=== PATIENT | female | born 1995 | race Caucasian/White ===

== ENCOUNTER 2017-05-08 21:52 | Emergency (ER) | payer OTHER ==
[2017-05-08 22:06] VITALS: BP 130/75; PULSE 82; TEMP 98; BMI 34.9
[2017-05-08] MEDS ORDERED: IBUPROFEN 600 MG TABLET (FP) PO ONE ×2 (22:16→22:27)
--- NOTE | 2017-05-08 22:36 | PDOC ---
History of Present Illness - General Chief Complaint: Pain Stated Complaint: LEG PAIN Time Seen by Provider: 05/08/17 22:07 History Source: Patient Exam Limitations: No Limitations - History of Present Illness Initial Comments: 05/08/17 22:31 21-year-old female presents to the ED with complaints of bilateral watts and right calf pain. Patient states currently is in a softball tournament and states every time she runs the symptoms return. Patient states took Aleve with moderate improvement but states pain returned today after playing in the game. Patient denies weakness, difficulty ambulating but states has an aching sharp pain with ambulation. Timing/Duration: intermittent Severity: mild Associated Symptoms: reports: denies symptoms Past History - Past Medical History Allergies/Adverse Reactions: Allergies Allergy/AdvReac Type Severity Reaction Status Date / Time No Known Allergies Allergy Verified 05/08/17 22:03 Home Medications: Ambulatory Orders NK [No Known Home Medication] 05/08/17 Suicide Attempt (Hx): No Other medical history: Pt denies - Immunization History Immunization Up to Date: Yes - Psycho/Social/Smoking Cessation Hx Anxiety: No Suicidal Ideation: No Smoking Status: No Smoking History: Never smoked Number of Cigarettes Smoked Daily: 0 Information on smoking cessation initiated: No Hx Alcohol Use: No Drug/Substance Use Hx: No Substance Use Type: None Patient Lives Alone: No Lives with/in: parents Review of Systems - Review of Systems Able to Perform ROS?: Yes Constitutional: No: Symptoms Reported Musculoskeletal: Yes: Muscle Pain Integumentary: No: Symptoms Reported Neurological: No: Symptoms reported *Physical Exam - Vital Signs Last Vital Signs Temp Pulse Resp BP Pulse Ox 98.0 F 82 20 130/75 99 05/08/17 22:04 05/08/17 22:04 05/08/17 22:04 05/08/17 22:04 05/08/17 22:04 - Physical Exam General Appearance: Yes: Nourished, Appropriately Dressed. No: Apparent Distress Extremity: positive: Normal Capillary Refill, Calf Tenderness (right), Other ( bilateral watts tenderness). negative: Pedal Edema Integumentary: positive: Normal Color, Warm, Moist Neurologic: positive: Motor Strength 5/5 (ambulatory) Medical Decision Making - Medical Decision Making 05/08/17 22:34 With complaints of bilateral watts pain and right calf pain. Patient currently in a softball tournament which seems to be aggravating her symptoms. Patient with leg condition splint and calf muscle strain. Patient ordered for Motrin here with supportive instructions for home. *DC/Admit/Observation/Transfer Diagnosis at time of Disposition: Watts splints Qualifiers: Encounter type: initial encounter Laterality: unspecified laterality Qualified Code(s): S86.899A - Other injury of other muscle(s) and tendon(s) at lower leg level, unspecified leg, initial encounter - Discharge Dispostion Disposition: HOME Condition at time of disposition: Good - Referrals Referrals: Jose López MD [Primary Care Provider] - - Patient Instructions Printed Discharge Instructions: DI for Watts Splint-Adult Additional Instructions: Please take Motrin 400 mg every 8 hours and apply ice to the affected areas and heat to your right calf. Please add potassium to diet and consider postrecovery drink following heavy exercise. - Post Discharge Activity
== END 2017-05-08 22:38 | disposition home or self-care (01) ==
LOC: JERFT 21:52
DX: S86.899A Other injury of other muscle(s) and tendon(s) at lower leg level, unspecified leg, initial encounter (principal); X58.XXXA Exposure to other specified factors, initial encounter; Y93.89 Activity, other specified; Y92.9 Unspecified place or not applicable
CPT/HCPCS: 99281-25

== ENCOUNTER 2017-07-13 18:45 | Emergency (ER) | payer OTHER ==
[2017-07-13 18:57] VITALS: BP 130/82; PULSE 118; TEMP 100.6; BMI 34.9
[2017-07-13] MEDS ORDERED: ACETAMINOPHEN 325 MG TABLET (FP) PO ONE (18:59)
--- NOTE | 2017-07-13 19:43 | PDOC ---
History of Present Illness - General Chief Complaint: Cold Symptoms Stated Complaint: FEVER Time Seen by Provider: 07/13/17 19:25 - History of Present Illness Initial Comments: 07/13/17 19:43 CHIEF COMPLAINT: fever, tired HISTORY OF PRESENT ILLNESS: 21 yo F with no PMH presents to [facility] with generalized malaise and fever since this morning. Patient reports "I didn't feel well this morning when I woke up so I basically slept all day. I have a headache and body aches." Patient denies any sore throat, cough, runny nose, sneezing, nausea, vomiting, diarrhea. PAST MEDICAL HISTORY: Denies past medical history FAMILY HISTORY: Denies SOCIAL HISTORY: Denies tobacco, alcohol, illicit drug use. SURGICAL HISTORY: Denies ALLERGIES: No known drug allergies REVIEW OF SYSTEMS General/Constitutional: Fever, weakness today. HEENT: Denies change in vision. Denies ear pain or discharge. Denies sore throat. Cardiovascular: Denies chest pain or shortness of breath. Respiratory: Denies cough, wheezing, or hemoptysis. Gastrointestinal: Denies nausea, vomiting, diarrhea. Genitourinary: Denies dysuria, frequency, or change in urination. Musculoskeletal: Body aches. Skin: Denies rash. Neurologic: Headache. Denies vertigo, loss of consciousness, or loss of sensation. PHYSICAL EXAM General Appearance: Well-appearing, appropriately dressed. No apparent distress. HEENT: Swollen turbinates. No erythema, swelling, or exudate to tonsils b/l. EOMI, PERRLA. No conjunctival pallor. No photophobia, scleral icterus. Neck: Supple. Trachea midline. No tenderness, rigidity, carotid bruit, stridor , lymphadenopathy, or thyromegaly. Respiratory/Chest: Lungs CTAB. No shortness of breath, chest tenderness, respiratory distress, accessory muscle use. No crackles, rales, rhonchi, stridor , wheezing, dullness Cardiovascular: RRR. S1, S2. Gastrointestinal/Abdominal: Normal bowel sounds. Abdomen soft, non-distended. No tenderness or rebound tenderness. No organomegaly, pulsatile mass, guarding , hernia, hepatomegaly, splenomegaly. Musculoskeletal/Extremities: Normal inspection. FROM of all extremities, normal capillary refill. No tenderness to extremities, pedal edema, swelling, erythema or deformity. Integumentary: Appropriate color, dry, warm. No cyanosis, erythema, jaundice or rash Neurologic: registered nurse practitioner II-XII intact. Fully oriented, alert. Appropriate mood/affect. Motor strength 5/5. No appreciable EOM palsy, facial droop or sensory deficit. 07/13/17 19:44 07/13/17 19:48 Past History - Past Medical History Allergies/Adverse Reactions: Allergies Allergy/AdvReac Type Severity Reaction Status Date / Time No Known Allergies Allergy Verified 07/13/17 18:57 Home Medications: Ambulatory Orders Ibuprofen 600 mg PO TID PRN #30 tablet 07/13/17 Loratadine [Claritin] 10 mg PO DAILY #14 tablet 07/13/17 Pseudoephedrine HCl [Sudafed 12-Hour] 120 mg PO BID PRN #14 tablet.er 07/13/17 Other medical history: denies - Immunization History Immunization Up to Date: Yes - Suicide/Smoking/Psychosocial Hx Smoking Status: No Smoking History: Never smoked Number of Cigarettes Smoked Daily: 0 Information on smoking cessation initiated: No Hx Alcohol Use: No Drug/Substance Use Hx: No Substance Use Type: None *Physical Exam - Vital Signs Last Vital Signs Temp Pulse Resp BP Pulse Ox 100.6 F H 118 H 18 130/82 98 07/13/17 18:53 07/13/17 18:53 07/13/17 18:53 07/13/17 18:53 07/13/17 18:53 ED Treatment Course - Medications Given in the ED: ED Medications Discontinued Medications Generic Name Dose Route Start Last Admin Trade Name Freq PRN Reason Stop Dose Admin Acetaminophen 650 mg 07/13/17 18:59 07/13/17 18:59 Tylenol - PO 07/13/17 19:00 650 mg NOW ONE Administration Medical Decision Making - Medical Decision Making 07/13/17 19:48 21 yo F with no PMH presents to [facility] with generalized malaise and fever. -UA, UCx. urine preg -influenza rapid swab *DC/Admit/Observation/Transfer Diagnosis at time of Disposition: Viral syndrome - Discharge Dispostion Disposition: HOME Condition at time of disposition: Stable Admit: No - Prescriptions Prescriptions: Loratadine [Claritin] 10 mg PO DAILY #14 tablet Ibuprofen 600 mg PO TID PRN #30 tablet PRN Reason: fever or body aches Pseudoephedrine HCl [Sudafed 12-Hour] 120 mg PO BID PRN #14 tablet.er PRN Reason: congestion - Patient Instructions Printed Discharge Instructions: DI for Viral Syndrome Additional Instructions: Please take medications as prescribed. Stay home and get plenty of rest for the next 2-3 days. Drink plenty of fluids such as water, soup, tea (no coffee or sugary drinks). Follow up with your primary care doctor if symptoms persist past 5 days. If you develop fever unrelieved by Motrin, vomiting, diarrhea, or any new or worsening symptoms, please return to the ER immediately. - Post Discharge Activity Forms/Work/School Notes: Back to Work
[2017-07-14 00:43] LABS: URINE APPEARANCE CLOUDY; URINE BILIRUBIN NEGATIVE (NEGATIVE); URINE BLOOD NEGATIVE (NEGATIVE); URINE COLOR YELLOW; URINE GLUCOSE (UA) NEGATIVE (NEGATIVE); URINE KETONE NEGATIVE (NEGATIVE); URINE NITRITE NEGATIVE (NEGATIVE); URINE PROTEIN NEGATIVE (NEGATIVE)
[2017-07-14 11:13] LABS: URINE LEUK ESTERASE Negative (NEGATIVE)
== END 2017-07-13 20:27 | disposition home or self-care (01) ==
LOC: JERFT 18:45
DX: B34.9 Viral infection, unspecified (principal)
CPT/HCPCS: 81003; 84703; 87086; 87804; 99281-25

== ENCOUNTER 2018-12-28 15:08 | Emergency (ER) | payer OTHER ==
[2018-12-28 15:23] VITALS: BP 121/67; PULSE 68; TEMP 98.3; BMI 44.9
[2018-12-28] MEDS ORDERED: DEXAMETHASONE LIQUID 0.5 MG/5 ML 240 ML BULK BOTTLE PO ONE (16:03)
[2018-12-28] MEDS ORDERED: DEXAMETHASONE SOD PHOSPHATE 10 MG/1 ML VIAL ONE (16:06)
--- NOTE | 2018-12-28 16:19 | PDOC ---
History of Present Illness - General Chief Complaint: Pain, Acute Stated Complaint: FACIAL PAIN Time Seen by Provider: 12/28/18 15:52 History Source: Patient Exam Limitations: Clinical Condition - History of Present Illness Initial Comments: 12/28/18 16:41 Patient with no significant past medical history present with complaint of swelling under chin upon waking this morning. Patient reported mild throat pain with swallowing. Denies fever, chills, nausea or vomiting. Denies any other symptoms Timing/Duration: 4-6 hours Past History - Past Medical History Allergies/Adverse Reactions: Allergies Allergy/AdvReac Type Severity Reaction Status Date / Time No Known Allergies Allergy Verified 12/28/18 15:23 Home Medications: Ambulatory Orders Amox-Tr/K Cl [Augmentin - 875Mg Tablet] 1 tab PO BID #14 tablet 12/28/18 COPD: No - Immunization History Immunization Up to Date: Yes - Suicide/Smoking/Psychosocial Hx Smoking Status: No Smoking History: Never smoked Number of Cigarettes Smoked Daily: 0 Hx Alcohol Use: No Drug/Substance Use Hx: No Substance Use Type: None Review of Systems - Review of Systems Able to Perform ROS?: Yes Is the patient limited Icelandic proficient: No Constitutional: No: Chills, Fever, Malaise HEENTM: Yes: Symptoms Reported, See HPI, Throat Pain, Other (swelling under chin ). No: Eye Pain, Blurred Vision, Tearing, Recent change in vision, Double Vision, Cataracts, Ear Pain, Ocular Prothesis, Ear Discharge, Nose Pain, Nose Congestion, Tinnitus, Nose Bleeding, Hearing Loss, Throat Swelling, Mouth Pain, Dental Problems, Difficulty Swallowing, Mouth Swelling Respiratory: No: Symptoms reported, See HPI, Cough, Orthopnea, Shortness of Breath, SOB with Exertion, SOB at Rest, Stridor, Wheezing, Productive cough, Hemoptysis, Other Cardiac (ROS): No: Symptoms Reported, See HPI, Chest Pain, Edema, Irregular Heart Rate, Lightheadedness, Palpitations, Syncope, Chest Tightness, Other ABD/GI: No: Nausea, Vomiting All Other Systems: Reviewed and Negative *Physical Exam - Vital Signs Last Vital Signs Temp Pulse Resp BP Pulse Ox 98.3 F 68 16 121/67 97 12/28/18 15:21 12/28/18 15:21 12/28/18 15:21 12/28/18 15:21 12/28/18 15:21 - Physical Exam Comments: 12/28/18 16:43 GENERAL: Well developed, well nourished. Awake and alert. No acute distress. HEENT: small palpable lymphandenitis under submental area. Normocephalic, atraumatic. PERRLA, EOMI. No conjunctival pallor. Sclera are non-icteric. Moist mucous membranes. Oropharynx is clear. NECK: Supple. Full ROM. CARDIOVASCULAR: Regular rate and rhythm. No murmurs, rubs, or gallops. Distal pulses are 2+ and symmetric. PULMONARY: No evidence of respiratory distress. Lungs clear to auscultation bilaterally. No wheezing, rales or rhonchi. ABDOMINAL: Soft. Non-tender. Non-distended. No rebound or guarding. No organomegaly. Normoactive bowel sounds. MUSCULOSKELETAL Normal range of motion at all joints. SKIN: Warm and dry. Normal capillary refill. No rashes. No jaundice. NEUROLOGICAL: Alert, awake, appropriate. Gait is normal without ataxia. PSYCHIATRIC: Cooperative. Good eye contact. Appropriate mood General Appearance: Yes: Nourished, Appropriately Dressed. No: Apparent Distress ED Treatment Course - Medications Given in the ED: ED Medications Discontinued Medications Generic Name Dose Route Start Last Admin Trade Name Freq PRN Reason Stop Dose Admin Dexamethasone 10 mg 12/28/18 16:03 12/28/18 16:08 Decadron Liquid - PO 12/28/18 16:04 10 mg ONCE ONE Administration Medical Decision Making - Medical Decision Making 12/28/18 16:45 Patient with no significant past medical history present with complaint of swelling and pain under chin with mild pain with swallowing since this morning. Patient denies fever chills or any other symptoms. Exam significant for mild submental lymphadenopathy without erythema to skin. Symptoms likely viral lymphadenitis versus strep lymphadenitis. Rapid strep test ordered to rule out strep pharyngitis. 12/28/18 16:48 Rapid strep test negative. Patient is stable for outpatient management for lymphadenitis on Augmentin with ENT follow-up. Decadron 10 mg by mouth given prior to discharge. *DC/Admit/Observation/Transfer Diagnosis at time of Disposition: Lymphadenitis - Discharge Dispostion Disposition: HOME Condition at time of disposition: Stable Decision to Admit order: No - Prescriptions Prescriptions: Amox-Tr/K Cl [Augmentin - 875Mg Tablet] 1 tab PO BID #14 tablet - Referrals Referrals: Jimbo Jimenez MD [Staff Physician] - - Patient Instructions Printed Discharge Instructions: DI for Lymphadenopathy Additional Instructions: Your strep test was negative. Take medications as prescribed and finish it. Follow-up referred ENT if no improvement in 4 days. - Post Discharge Activity
== END 2018-12-28 16:51 | disposition home or self-care (01) ==
LOC: JERFT 15:08
DX: I88.9 Nonspecific lymphadenitis, unspecified (principal)
CPT/HCPCS: 87070; 87880; 99281-25

== ENCOUNTER 2019-04-29 16:59 | Emergency (ER) | payer OTHER ==
[2019-04-29 17:07] VITALS: BP 110/72; PULSE 73; TEMP 98.6; BMI 38.2
--- NOTE | 2019-04-29 17:08 | PDOC ---
Rapid Medical Evaluation Chief Complaint: Toothache Time Seen by Provider: 04/29/19 17:04 Medical Evaluation: Allergies Allergy/AdvReac Type Severity Reaction Status Date / Time No Known Allergies Allergy Verified 12/28/18 15:23 Vital Signs Temp Pulse Resp BP Pulse Ox 98.6 F 73 20 110/72 98 04/29/19 17:03 04/29/19 17:03 04/29/19 17:03 04/29/19 17:03 04/29/19 17:03 04/29/19 17:07 Pt c/o:llq tooth pain x 3 days, no appt w/ dentist until next week, Pt on brief exam: noted intact cap to left lq molar, no abscess or foul odor Pt ordered for: none Pt to proceed to the ED Discharge Disposition - Diagnosis Pain, dental - Discharge Dispostion Disposition: HOME Condition at time of disposition: Stable - Referrals Referrals: Jose López MD [Primary Care Provider] - - Patient Instructions Printed Discharge Instructions: DI for Dental Pain Additional Instructions: Thank you for choosing [facility]. It was a pleasure taking care of you. You may take Motrin 600 mg every 6 hours by mouth as needed for mild to moderate pain. Take Motrin with food. You may follow-up in dental urgent care clinic for further evaluation: Address: [address] [place], [place] [id number] Return to the Emergency Department if your symptoms worsen or persist or have other concerning symptoms. - Post Discharge Activity
--- NOTE | 2019-04-29 17:40 | PDOC ---
History of Present Illness - General Chief Complaint: Toothache Stated Complaint: LOWER LT SIDE MOUTH PAIN Time Seen by Provider: 04/29/19 17:04 History Source: Patient Exam Limitations: No Limitations Past History - Past Medical History Allergies/Adverse Reactions: Allergies Allergy/AdvReac Type Severity Reaction Status Date / Time No Known Allergies Allergy Verified 12/28/18 15:23 Home Medications: Ambulatory Orders Amox-Tr/K Cl [Augmentin - 875Mg Tablet] 1 tab PO BID #14 tablet 12/28/18 COPD: No - Immunization History Immunization Up to Date: Yes - Suicide/Smoking/Psychosocial Hx Smoking Status: No Smoking History: Never smoked Have you smoked in the past 12 months: No Number of Cigarettes Smoked Daily: 0 Information on smoking cessation initiated: No Hx Alcohol Use: No Drug/Substance Use Hx: No Substance Use Type: None *Physical Exam - Vital Signs Last Vital Signs Temp Pulse Resp BP Pulse Ox 98.6 F 73 20 110/72 98 04/29/19 17:03 04/29/19 17:03 04/29/19 17:03 04/29/19 17:03 04/29/19 17:03 - Physical Exam General Appearance: No: Apparent Distress HEENT: positive: Pharynx Normal, Other (L tooth #19 with no surrounding gum swelling, no fluctuance/abscess noted, no foul odor) Respiratory/Chest: positive: Lungs Clear, Normal Breath Sounds. negative: Respiratory Distress Cardiovascular: positive: Regular Rhythm, Regular Rate, S1, S2. negative: Murmur Integumentary: positive: Normal Color Neurologic: positive: Alert, Normal Mood/Affect Medical Decision Making - Medical Decision Making 23 y/o F with no sig pmh presents with L lower molar tooth pain (tooth #19) x 2- 3 days. Took Alleve prior to coming. Was unable to see dentist as states appointment not until next week. Patient has had dental fillings/crowns placed in past; also had all 4 wisdom teeth removed in the past. Denies fever, cough, n /v, throat pain. No sign of dental abscess/infection Patient refused pain meds currently 04/29/19 17:35 *DC/Admit/Observation/Transfer Diagnosis at time of Disposition: Pain, dental - Discharge Dispostion Disposition: HOME Condition at time of disposition: Stable Decision to Admit order: No - Referrals Referrals: Jose López MD [Primary Care Provider] - - Patient Instructions Printed Discharge Instructions: DI for Dental Pain Additional Instructions: Thank you for choosing [facility]. It was a pleasure taking care of you. You may take Motrin 600 mg every 6 hours by mouth as needed for mild to moderate pain. Take Motrin with food. You may follow-up in dental urgent care clinic for further evaluation: Address: [address] [place] [address] Return to the Emergency Department if your symptoms worsen or persist or have other concerning symptoms. - Post Discharge Activity
== END 2019-04-29 17:43 | disposition home or self-care (01) ==
LOC: JER 16:59 → JERFT 16:59
DX: K08.89 Other specified disorders of teeth and supporting structures (principal)
CPT/HCPCS: 99282-25

== ENCOUNTER 2019-09-05 19:13 | Emergency (ER) | payer OTHER ==
[2019-09-05 19:22] VITALS: TEMP 98; BMI 38.6
--- NOTE | 2019-09-05 19:47 | PDOC ---
History of Present Illness - General Chief Complaint: Chest Pain Stated Complaint: CHEST PAIN Time Seen by Provider: 09/05/19 19:46 - History of Present Illness Initial Comments: 09/05/19 20:16 23y/o F no significant past medical hx presenting today with chest tightness for 5 days. She has had about 5-6 episodes a day lasting approximately 5 minutes. Pain is sternal and radiates to the left side of her chest. She sometimes gets episodes of associated numbness and tingling. Pain is about 5/10 no associated exacerbating or relieving factors. She denies any nausea,vomiting , shortness of breath, cough, fevers, chills, pleuritic chest pain, hemoptysis, ocp/hormone use, recent surgery or long travel, unilateral leg swelling of hx of clots. States she has been under a lot of stress since her fathers cancer diagnosis. 09/05/19 20:22 Past History - Past Medical History Allergies/Adverse Reactions: Allergies Allergy/AdvReac Type Severity Reaction Status Date / Time No Known Allergies Allergy Verified 12/28/18 15:23 Home Medications: Ambulatory Orders NK [No Known Home Medication] 09/05/19 COPD: No - Immunization History Immunization Up to Date: Yes - Psycho Social/Smoking Cessation Hx Smoking Status: No Smoking History: Never smoked Have you smoked in the past 12 months: No Number of Cigarettes Smoked Daily: 0 Hx Alcohol Use: No Drug/Substance Use Hx: No Substance Use Type: None Review of Systems - Review of Systems Constitutional: No: Chills, Fever HEENTM: No: Eye Pain, Blurred Vision Respiratory: No: Cough, Shortness of Breath Cardiac (ROS): Yes: Chest Pain. No: Palpitations ABD/GI: No: Nausea, Vomiting : No: Burning, Dysuria Musculoskeletal: No: Back Pain, Joint Pain Integumentary: No: Bruising, Change in Color Neurological: Yes: Numbness, Tingling. No: Headache Psychiatric: Yes: Stressors Hematologic/Lymphatic: No: Blood Clots, Easy Bleeding *Physical Exam - Vital Signs Last Vital Signs Temp Pulse Resp BP Pulse Ox 98.0 F 84 19 122/81 97 09/05/19 19:18 09/05/19 19:18 09/05/19 19:18 09/05/19 19:18 09/05/19 19:18 - Physical Exam 09/05/19 20:23 PE: GENERAL: Awake, alert, and fully oriented, in no acute distress HEAD: No signs of trauma, normocephalic, atraumatic. facial flushing on both cheeks EYES: PERRLA, EOMI, sclera anicteric, conjunctiva clear ENT: Auricles normal inspection, hearing grossly normal, nares patent, oropharynx clear without exudates. Moist mucosa NECK: Normal ROM, supple, no lymphadenopathy, JVD, or masses LUNGS: No distress, speaks full sentences, clear to auscultation bilaterally HEART: Regular rate and rhythm, normal S1 and S2, no murmurs, rubs or gallops, peripheral pulses normal and equal bilaterally. ABDOMEN: Soft, nontender, normoactive bowel sounds. No guarding, no rebound. EXTREMITIES : Normal inspection, Normal range of motion, no edema. No clubbing or cyanosis NEUROLOGICAL: Cranial nerves II through XII grossly intact. Normal speech, no focal sensorimotor deficits SKIN: Warm, Dry, normal turgor, no rashes or lesions noted ED Treatment Course - LABORATORY CBC & Chemistry Diagram: 09/05/19 20:45 09/05/19 20:45 Medical Decision Making - Medical Decision Making 09/05/19 20:15 23y/o F no significant past medical hx presenting today with chest tightness for 5 days. EKG: normal sinus rhythm, normal EKG PERC's out cbc, cmp, cxr, troponin 09/05/19 20:24 09/05/19 22:13 Labs unremarkable trop negative negative test no acute pathology cxr Discharge - Discharge Information Problems reviewed: Yes Clinical Impression/Diagnosis: Chest pain Qualifiers: Chest pain type: unspecified Qualified Code(s): R07.9 - Chest pain, unspecified Condition: Stable Disposition: HOME - Admission No - Follow up/Referral Referrals: Jose López MD [Primary Care Provider] - - Patient Discharge Instructions Patient Printed Discharge Instructions: DI for Atypical Chest Pain Additional Instructions: RETURN TO THE ER if your pain does not improve you develop fever, nausea, vomiting, chills - Post Discharge Activity
--- NOTE | 2019-09-05 20:39 | PDOC ---
Attending Attestation - Resident Resident Name: TelmanoraBayrondarryl - ED Attending Attestation I have performed the following: I have examined & evaluated the patient, The case was reviewed & discussed with the resident, I agree w/resident's findings & plan, Exceptions are as noted - HPI HPI: 09/05/19 20:36 23 F with no PMH presents to ED with 5 days of intermittent chest pain. Pt describes a tightness in her chest that occurs 5-6 times per day. Each time, it lasts only a few minutes before resolving on its own. Pt denies any SOB/N/V. Denies palpitations. Pt denies leg swelling. Denies recent travel/ immobilization. No OCP use. - Physicial Exam PE: 09/05/19 20:38 "GENERAL: Awake, alert, and fully oriented, in no acute distress. HEAD: No signs of trauma EYES: PERRLA, EOMI, sclera anicteric, conjunctiva clear ENT: Auricles normal inspection, hearing grossly normal, nares patent, oropharynx clear without exudates. Moist mucosa NECK: Nontender, no stepoffs, Normal ROM, supple, no lymphadenopathy, JVD, or masses LUNGS: Breath sounds equal, clear to auscultation bilaterally. No wheezes, and no crackles HEART: Regular rate and rhythm, normal S1 and S2, no murmurs, rubs or gallops ABDOMEN: Soft, nontender, normoactive bowel sounds. No guarding, no rebound. No masses EXTREMITIES: Normal range of motion, no edema. No clubbing or cyanosis. No cords, erythema, or tenderness NEUROLOGICAL: Cranial nerves II through XII intact. 5/5 strength and sensation in all extremities, Normal speech, normal gait, normal cerebellar function SKIN: Warm, Dry, normal turgor, no rashes or lesions noted. - Medical Decision Making 09/05/19 20:38 23 F with atypical intermittent chest tightness. EKG completely normal, no evidence of ischemia or arrhythmia. Suspect pain is anxiety-related given recent cancer diagnosis in family. PERC score 0. - Labs, trop - UPT - CXR 09/05/19 22:07 Labs wnl CXR clear on my read Pt reassessed - continues to be asymptomatic Pt is well appearing, with normal vitals. Clinically stable for DC at this time. I discussed the physical exam findings, ancillary test results and final diagnoses with the patient. I answered all of the patient's questions. The patient was satisfied with the care received and felt comfortable with the discharge plan and treatment plan. The patient agrees to follow up with the primary care physician within 24-72 hours.
[2019-09-05 20:54] LABS: BASO % 1.1 % (0-2.0); EOS % 0.7 % (0-4.5); HEMATOCRIT 38.5 % (32.4-45.2); HEMOGLOBIN 12.9 GM/dL (10.7-15.3); LYMPH % 22.6 % (8-40); MCH 27.9 pg (25.7-33.7); MCHC 33.5 g/dl (32.0-36.0); MEAN CELL VOLUME 83.5 fl (80-96); MEAN PLT VOLUME 7.8 fl (7.5-11.1); MONO % 7.2 % (3.8-10.2); NEUT % 68.4 % (42.8-82.8); PLATELET COUNT 382 K/MM3 (134-434); RBC 4.62 M/mm3 (3.60-5.2); RDW 13.5 % (11.6-15.6)
[2019-09-05 21:27] LABS: BILIRUBIN,TOTAL 0.6 mg/dL (0.2-1); BLOOD UREA NITROGEN 14.9 mg/dL (7-18); CALCIUM 9.2 mg/dL (8.5-10.1); CREATININE 0.9 mg/dL (0.55-1.3); POTASSIUM 4.2 mmol/L (3.5-5.1); TOT PROT 7.2 g/dl (6.4-8.2)
[2019-09-05 22:25] VITALS: BP 122/83; PULSE 80
--- NOTE | 2019-09-06 10:38 | EKG ---
Test Reason : Blood Pressure : / mmHG Vent. Rate : 076 BPM Atrial Rate : 076 BPM P-R Int : 128 ms QRS Dur : 092 ms QT Int : 392 ms P-R-T Axes : 043 051 028 degrees QTc Int : 441 ms NORMAL SINUS RHYTHM NORMAL ECG WHEN COMPARED WITH ECG OF 19-DEC-2013 17:32, NO SIGNIFICANT CHANGE WAS FOUND Confirmed by ANNE MARIE STUART MD ([id number]) on 09/06/2019 10:38:07 AM Referred By: Confirmed By:ANNE MARIE STUART MD
== END 2019-09-05 22:25 | disposition home or self-care (01) ==
LOC: JER 19:13
DX: R07.9 Chest pain, unspecified (principal)
CPT/HCPCS: 36415; 71046-TC-FY; 80053; 84484; 84703; 85025; 93005; 93010; 99284-25

== ENCOUNTER 2019-10-03 21:44 | Emergency (ER) | payer OTHER ==
[2019-10-03 22:02] VITALS: BP 128/82; PULSE 103; TEMP 98.3; BMI 38.2
[2019-10-03] MEDS ORDERED: IBUPROFEN 400 MG TABLET (FP) PO ONE ×2 (23:26→23:42)
--- NOTE | 2019-10-03 23:45 | PDOC ---
Documentation entered by Frances Schroeder SCRIBE, acting as scribe for Armin Nguyen MD. Armin Nguyen MD: This documentation has been prepared by the scribeAlexandre Lincy, SCRIBE, under my direction and personally reviewed by me in its entirety. I confirm that the documentation accurately reflects all work, treatment, procedures, and medical decision making performed by me. History of Present Illness - General Chief Complaint: Pain Stated Complaint: KNEE INJURY Time Seen by Provider: 10/03/19 23:15 History Source: Patient Exam Limitations: No Limitations - History of Present Illness Initial Comments: 10/03/19 23:41 The patient is a 24-year-old female with no reported past medical history who presents to the emergency department with left knee pain. The patient presents with 2 weeks of left posterior/lateral knee pain with extension of the leg. T Denies pain at rest. Denies fall, trauma, accidents/injury. Denies hx of knee problems. The patient reports initially she took Ibuprofen and applied icy hot to the knee, without relief. Denies hip pain. The patient reports she started a new job about 2 weeks ago, where she is standing on her feet all day. Allergies: NKDA PCP: Dr. Rose López. Past History - Past Medical History Allergies/Adverse Reactions: Allergies Allergy/AdvReac Type Severity Reaction Status Date / Time No Known Allergies Allergy Verified 12/28/18 15:23 Home Medications: Ambulatory Orders NK [No Known Home Medication] 09/05/19 COPD: No - Immunization History Immunization Up to Date: Yes - Psycho Social/Smoking Cessation Hx Smoking Status: No Smoking History: Never smoked Have you smoked in the past 12 months: No Number of Cigarettes Smoked Daily: 0 Hx Alcohol Use: No Drug/Substance Use Hx: No Substance Use Type: None Review of Systems - Review of Systems Able to Perform ROS?: Yes Comments:: 10/03/19 23:41 Constitutional - Pt denies Fever, Chills, weakness, Musculskelatal - +left knee pain. Denies hip pain. denies back pain, joint swelling skin - denies bruising, erythema, rash neurological: denies numbness, focal weakness, tingling, ataxia, weakness *Physical Exam - Vital Signs Last Vital Signs Temp Pulse Resp BP Pulse Ox 98.3 F 103 H 19 128/82 98 10/03/19 22:00 10/03/19 22:00 10/03/19 22:00 10/03/19 22:00 10/03/19 22:00 - Physical Exam 10/03/19 23:35 GENERAL: The patient is awake, alert, and fully oriented, Nontoxic - in no acute distress. L knee exam: Neg anterior drawer, neg lachmans, nomal ROM of knee. Normal ROM of hip/pelvis. no erythema on knee. no effusion Medical Decision Making - Medical Decision Making 10/03/19 23:31 24-year-old female presenting with atraumatic left knee pain for the last several weeks that is worse when she extends or ambulates on her knee, the pain is worse on the lateral aspect of the knee there is no associated fever, chills , numbness, tingling, weakness, radiation of the pain. Unremarkable knee exam with no signs of focal tenderness, ligamentous laxity, effusion low suspicon for fracture will dfer xray will give motrin, rest for several days PMD/otho fu if not improvd I discussed the physical exam findings, ancillary test results and final diagnoses with the patient. I answered all of the patient's questions. The patient was satisfied with the care received and felt comfortable with the discharge plan and treatment plan. The patient will call their primary care physician within 24 hours to arrange follow-up and will return to the Emergency Department with any new, persistent or worsening symptoms. Discharge - Discharge Information Problems reviewed: Yes Clinical Impression/Diagnosis: Strain of knee and leg, left Qualifiers: Encounter type: initial encounter Qualified Code(s): S86.912A - Strain of unspecified muscle(s) and tendon(s) at lower leg level, left leg, initial encounter Condition: Improved Disposition: HOME - Admission No - Follow up/Referral Referrals: Jose López MD [Primary Care Provider] - Dmitriy Gardner MD [Staff Physician] - - Patient Discharge Instructions Patient Printed Discharge Instructions: DI for Knee Pain Additional Instructions: Return to the emergency department immediately with ANY new, persistent or worsening symptoms. Keep your leg elevated to minimize any swelling. Take 400 mg of ibuprofen 4 times a day for the next 4 days. Avoid long periods of standing or ambulation to allow your leg to rest. You may apply heat for comfort. If the symptoms do not improve by 1 week, go see your doctor or a an orthopedic doctor for further evaluation You MUST call and follow up with your doctor tomorrow for further evaluation of your symptoms. Results were discussed with you. Please make sure your doctor reviews the results of your emergency evaluation. Your Emergency Department visit is not complete without a follow up with your doctor. Print Language: GREEK - Post Discharge Activity
== END 2019-10-03 23:46 | disposition home or self-care (01) ==
LOC: JER 21:44 → JERFT 21:44 → JER 23:46
DX: S86.812A Strain of other muscle(s) and tendon(s) at lower leg level, left leg, initial encounter (principal); X58.XXXA Exposure to other specified factors, initial encounter; Y93.89 Activity, other specified; Y92.018 Other place in single-family (private) house as the place of occurrence of the external cause; Y99.8 Other external cause status
CPT/HCPCS: 99281-25

== ENCOUNTER 2020-09-17 17:13 | Emergency (ER) | payer OTHER ==
[2020-09-17 17:19] VITALS: BP 116/67; PULSE 84; TEMP 96.6; BMI 35.7
== END 2020-09-17 18:06 | disposition home or self-care (01) ==
LOC: JERFT 17:13
DX: M25.512 Pain in left shoulder (principal)
CPT/HCPCS: 73000-TC-LT-FY; 99283-25

== ENCOUNTER 2021-08-14 14:30 | Emergency (ER) | payer OTHER ==
[2021-08-14 14:52] VITALS: BP 128/80; PULSE 90; TEMP 100; BMI 38.2
[2021-08-14] MEDS ORDERED: KETOROLAC TROMETHAMINE 15 MG/ML VIAL IM ONE (15:39)
[2021-08-14] MEDS ORDERED: KETOROLAC TROMETHAMINE 30 MG/1 ML VIAL ONE (15:53)
== END 2021-08-14 16:00 | disposition home or self-care (01) ==
LOC: FER 14:30
PROC: 3E0233Z Introduction of Anti-inflammatory into Muscle, Percutaneous Approach (ICD-10-PCS; principal; 2021-08-14)
DX: B34.9 Viral infection, unspecified (principal); R05.9 Cough, unspecified; R50.9 Fever, unspecified
CPT/HCPCS: 87804; 99284-25; C9803; U0003; U0005

== ENCOUNTER 2022-08-19 03:47 | Day surgery (SDC) | payer BC, OTHER ==
[2022-08-15 13:55] VITALS: BMI 38.2
[2022-08-19 08:16] VITALS: RESP 18
[2022-08-19] MEDS ORDERED: MIDAZOLAM HCL 2 MG/2 ML SINGLE DOSE VIAL ONE (10:35)
[2022-08-19 12:48] VITALS: BP 120/70; PULSE 64; TEMP 98.4
== END 2022-08-19 12:20 | disposition home or self-care (01) ==
LOC: JASU-SURG 03:47
PROVIDERS: ATTEND Urology
PROC: 0TF4XZZ Fragmentation in Left Kidney Pelvis, External Approach (ICD-10-PCS; principal; 2022-08-19 10:00)
DX: N20.0 Calculus of kidney (principal)
CPT/HCPCS: 81025

== ENCOUNTER 2023-12-10 13:08 | Inpatient (IN) | payer BC ==
[2023-12-10] MEDS: ELECTROLYTE-148 SOLN 1,000 ML IV SCH (14:15)
[2023-12-10 14:35] LABS: EPI CELLS >36 /uL (0-25.1); HYALINE CASTS 3 /uL (0-3.1); URINE APPEARANCE TURBID; URINE BACTERIA 7867 /uL (0-1359); URINE BILIRUBIN NEGATIVE (NEGATIVE); URINE COLOR YELLOW; URINE GLUCOSE (UA) NEGATIVE (NEGATIVE); URINE KETONE NEGATIVE (NEGATIVE); URINE LEUK ESTERASE 3+ (NEGATIVE); URINE NITRITE NEGATIVE (NEGATIVE); URINE PROTEIN 1+ (NEGATIVE); URINE RBC 45 /uL (0-23.9); URINE WBC 1837 /uL (0-25.8)
[2023-12-10 14:42] VITALS: BMI 45.7
[2023-12-10 14:58] LABS: BASO % 0.3 % (0-2.0); HEMATOCRIT 30.1 % (32.4-45.2); HEMOGLOBIN 10.1 GM/dL (10.7-15.3); LYMPH % 12.7 % (8-40); MCHC 33.5 g/dl (32.0-36.0); MEAN CELL VOLUME 74.8 fl (80-96); MEAN PLT VOLUME 7.1 fl (7.5-11.1); MONO % 7.5 % (3.8-10.2); NEUT % 78.5 % (42.8-82.8); PLATELET COUNT 388 10^3/uL (134-434); RBC 4.02 M/mm3 (3.60-5.2); RDW 18.3 % (11.6-15.6); RETICULOCYTES 1.87 % (0.5-1.5); WHITE BLOOD COUNT 9.1 K/mm3 (4.0-10.0)
[2023-12-10 15:03] LABS: INR 1.03 (0.83-1.09)
[2023-12-10 15:06] LABS: ACTIVATED PTT 25.4 SECONDS (25.2-36.5)
[2023-12-10] MEDS: DINOPROSTONE 10 MG VAGINAL SUPPOSITORY VG ONE (15:18)
[2023-12-10 15:21] LABS: POTASSIUM 4.3 mmol/L (3.5-5.1)
[2023-12-10 15:23] LABS: CALCIUM 8.4 mg/dL (8.5-10.1)
[2023-12-10 15:24] LABS: BLOOD UREA NITROGEN 8.5 mg/dL (7-18)
[2023-12-10 15:26] LABS: URIC ACID 2.9 mg/dL (2.6-7.2)
[2023-12-10 15:27] LABS: CREATININE 0.5 mg/dL (0.55-1.3)
[2023-12-10 16:19] LABS: HIV INTERPRETATION NEGATIVE (NEGATIVE)
[2023-12-10] MEDS ORDERED: OXYTOCIN 30 UNITS in 0.9% NS 30 UNIT/500 ML INFUS.BAG IVPB ONE (23:19)
[2023-12-10] MEDS: OXYTOCIN 30 UNITS in 0.9% NS 30 UNIT/500 ML INFUS.BAG IVPB SCH (23:30)
[2023-12-11] MEDS ORDERED: PROMETHAZINE HCL 25 MG/1 ML VIAL ONE ×2 (10:05→12:43)
[2023-12-11] MEDS ORDERED: BUTORPHANOL TARTRATE 2 MG/ML VIAL ONE ×2 (10:05→12:43)
[2023-12-11] MEDS: PROMETHAZINE HCL 25 MG/1 ML VIAL IVPB ONE ×2 (10:10→12:48)
[2023-12-11] MEDS: BUTORPHANOL TARTRATE 2 MG/ML VIAL IVPB PRN (10:10)
[2023-12-11] MEDS ORDERED: NALOXONE HCL 0.4 MG/ML VIAL IVPUSH PRN (16:31)
[2023-12-11] MEDS ORDERED: FENTANYL/BUPIVACAINE/NS/PF - PCEA - 50 ML DISP.SYRIN EP ONE ×3 (16:32→23:54)
[2023-12-11] MEDS ORDERED: BUPIVACAINE HCL/PF 0.25% (2.5MG/ML) 10 ML VIAL ONE (16:35)
[2023-12-11] MEDS ORDERED: FENTANYL CITRATE/PF 50 MCG/ML VIAL ONE ×2 (16:35→21:04)
[2023-12-11] MEDS ORDERED: LIDO 2%/EPI 1:200000 PRESRVFRE (20 ML SDVIAL) ONE (16:35)
[2023-12-11] MEDS: FENTANYL/BUPIVACAINE/NS/PF - PCEA - 50 ML DISP.SYRIN EP SCH (16:55)
[2023-12-11] MEDS ORDERED: AMPICILLIN SODIUM 2 GM VIAL ONE (21:44)
[2023-12-11] MEDS: AMPICILLIN - 2 GM in SODIUM CHLORIDE 100 ML IVPB ONE (21:45)
[2023-12-11] MEDS ORDERED: OXYTOCIN 30 UNITS in 0.9% NS 30 UNIT/500 ML INFUS.BAG IVPB ONE (22:38)
[2023-12-12] MEDS ORDERED: FENTANYL CITRATE/PF 50 MCG/ML VIAL ONE ×2 (00:30→07:09)
[2023-12-12] MEDS ORDERED: AMPICILLIN SODIUM 1 GM VIAL ONE ×2 (01:56→06:02)
[2023-12-12] MEDS: AMPICILLIN - 1 GM in SODIUM CHLORIDE 100 ML IVPB SCH (01:58)
[2023-12-12] MEDS ORDERED: FENTANYL/BUPIVACAINE/NS/PF - PCEA - 50 ML DISP.SYRIN EP ONE ×2 (02:47→05:40)
[2023-12-12] MEDS ORDERED: ePHEDrine SULFATE 50 MG/1 ML AMPULE ONE (07:09)
[2023-12-12] MEDS ORDERED: ceFAZolin SODIUM 1 GM VIAL ONE ×2 (07:09→07:29)
[2023-12-12] MEDS ORDERED: PHENYLEPHRINE HCL 10 MG/1 ML SINGLE DOSE VIAL ONE (07:09)
[2023-12-12] MEDS ORDERED: morphine SULFATE/PF 1 MG/2 ML (2cc Syringe - QUVA) ONE (07:09)
[2023-12-12] MEDS ORDERED: SODIUM CHLORIDE 0.9% P/F 10 ML VIAL IJ ONE (07:09)
[2023-12-12] MEDS: CITRIC ACID/SODIUM CITRATE 30 ML UNIT-DOSE CUP PO ONE (07:30)
[2023-12-12] MEDS ORDERED: LABETALOL HCL 200 MG TABLET (FP) ONE (07:36)
[2023-12-12] MEDS: LABETALOL HCL 200 MG TABLET (FP) PO STA (07:39)
[2023-12-12] MEDS ORDERED: BENZOCAINE 20% 57 GM BOTTLE TP PRN (07:51)
[2023-12-12] MEDS ORDERED: WITCH HAZEL 50% (TUCKS) 40 PAD/JAR PAD TP PRN (07:51)
[2023-12-12] MEDS ORDERED: METHYLERGONOVINE MALEATE 0.2 MG/1 ML AMP IM PRN (07:51)
[2023-12-12] MEDS ORDERED: BENZOCAINE 28 GM HEMORRHOIDAL OINTMENT TP PRN (07:51)
[2023-12-12] MEDS: OXYTOCIN 20 UNITS in 0.9% NS 20 UNIT/1,000 ML INFUS.BAG IV SCH (08:11)
[2023-12-12 09:10] LABS: CORD HCO3 20.9 mmHg (20-29); CORD PCO2 50.7 mmHg (30-78); CORD pH 7.232 (7.14-7.44)
[2023-12-12 09:13] LABS: CORD BASE EXCESS -1.8 mmol/L (0-2); CORD HCO3 23.1 mmHg (20-29); CORD PCO2 40.1 mmHg (30-78); CORD pH 7.378 (7.14-7.44)
[2023-12-12] MEDS ORDERED: ACETAMINOPHEN INJECTION 100 ML IVPB ONE (09:22)
[2023-12-12] MEDS ORDERED: AZITHROMYCIN IVPB 500 MG/250 ML BAG IVPB ONE (09:41)
[2023-12-12] MEDS ORDERED: ONDANSETRON 4 MG/2 ML VIAL IVPUSH PRN (09:43)
[2023-12-12] MEDS: AZITHROMYCIN IVPB 500 MG in DEXTROSE 5%-WATER - 250 ML IVPB STA (09:45)
[2023-12-12] MEDS: ACETAMINOPHEN 1000 MG/100 ML BAG IVPB PRN (09:48)
[2023-12-12] MEDS: LABETALOL HCL 200 MG TABLET (FP) PO SCH (10:13)
[2023-12-12] MEDS: AZITHROMYCIN IVPB 500 MG/250 ML BAG IVPB STA (10:17)
[2023-12-12] MEDS: CEFAZOLIN SODIUM 2 GM in DEXTROSE 5%-WATER 100 ML IVPB SCH (10:44)
[2023-12-12] MEDS: PRENATAL VITAMINS W/ FOLIC ACID TABLET (FP) PO SCH (16:04)
[2023-12-12] MEDS: FERROUS SO4 325 MG TABLET (FP) PO SCH (16:08)
[2023-12-12] MEDS: ACETAMINOPHEN 325 MG TABLET (FP) PO PRN (17:52)
[2023-12-12] MEDS ORDERED: oxyCODONE HCL 5 MG TABLET PO PRN (19:51)
[2023-12-13 06:54] LABS: BASO % 0.2 % (0-2.0); EOS % 0.4 % (0-4.5); HEMATOCRIT 27.6 % (32.4-45.2); HEMOGLOBIN 8.8 GM/dL (10.7-15.3); LYMPH % 9.1 % (8-40); MCH 24.2 pg (25.7-33.7); MCHC 31.7 g/dl (32.0-36.0); MEAN CELL VOLUME 76.4 fl (80-96); MEAN PLT VOLUME 7.1 fl (7.5-11.1); MONO % 8.2 % (3.8-10.2); NEUT % 82.1 % (42.8-82.8); PLATELET COUNT 319 10^3/uL (134-434); RBC 3.62 M/mm3 (3.60-5.2); RDW 18.7 % (11.6-15.6); WHITE BLOOD COUNT 14.8 K/mm3 (4.0-10.0)
[2023-12-13] MEDS ORDERED: BISACODYL 10 MG SUPP.RECT RC PRN (07:51)
[2023-12-13] MEDS: IBUPROFEN 600 MG TABLET (FP) PO PRN (09:02)
[2023-12-13] MEDS: SIMETHICONE 80 MG TAB.CHEW (FP) PO PRN (09:17)
[2023-12-13] MEDS: oxyCODONE HCL 5 MG TABLET PO PRN (14:32)
[2023-12-14 21:39] VITALS: RESP 18
[2023-12-15 07:15] LABS: BASO % 0.4 % (0-2.0); EOS % 2.8 % (0-4.5); HEMATOCRIT 24.1 % (32.4-45.2); HEMOGLOBIN 7.9 GM/dL (10.7-15.3); LYMPH % 15.9 % (8-40); MCH 24.7 pg (25.7-33.7); MCHC 32.9 g/dl (32.0-36.0); MEAN CELL VOLUME 75.1 fl (80-96); MEAN PLT VOLUME 7.2 fl (7.5-11.1); MONO % 7.5 % (3.8-10.2); NEUT % 73.4 % (42.8-82.8); PLATELET COUNT 317 10^3/uL (134-434); RBC 3.21 M/mm3 (3.60-5.2); RDW 18.7 % (11.6-15.6)
[2023-12-15 10:21] VITALS: BP 127/80; PULSE 75; TEMP 98
[2023-12-15] MEDS: GABAPENTIN 100 MG CAPSULE PO SCH (10:24)
[2023-12-15] MEDS ORDERED: GABAPENTIN 100 MG CAPSULE PO SCH (14:00)
== END 2023-12-15 14:16 | disposition home or self-care (01) | DRG 787 ==
LOC: JLDR 13:08 → J3W 12-12 11:15
PROVIDERS: ADMIT Obstetrics & Gynecology; ATTEND Obstetrics & Gynecology
PROC: 10D00Z1 Extraction of Products of Conception, Low, Open Approach (ICD-10-PCS; principal; 2023-12-12)
DX: O62.1 Secondary uterine inertia (principal); O41.03X0 Oligohydramnios, third trimester, not applicable or unspecified; O13.4 Gestational [pregnancy-induced] hypertension without significant proteinuria, complicating childbirth; Z3A.39 39 weeks gestation of pregnancy; Z37.0 Single live birth
CPT/HCPCS: 36415; 36600; 80048; 81003; 82570; 82803; 82977; 83010; 84156; 84450; 84460; 84550; 85025; 85045; 85610; 85730; 86780; 86850; 86900; 86901; 87389; 88307-TC; 94010; J0131